=== PATIENT | female | born 1965 | race Hispanic/Latino ===

== ENCOUNTER → 2018-04-27 | Outpatient (CLI) | payer OTHER | END | disposition home or self-care (01) | LOC: RAH 11:12 | PROVIDERS: ATTEND Physical Medicine & Rehabilitation | DX: M19.071 Primary osteoarthritis, right ankle and foot (principal) | CPT/HCPCS: 73630 ==

== ENCOUNTER → 2019-01-02 | Outpatient (CLI) | payer OTHER | END | disposition home or self-care (01) | LOC: RAH 08:43 | PROVIDERS: ATTEND Internal Medicine Critical Care Medicine | DX: K76.9 Liver disease, unspecified (principal); I70.1 Atherosclerosis of renal artery; I10 Essential (primary) hypertension | CPT/HCPCS: 76705; 76770; 93975 ==

== ENCOUNTER 2020-05-22 12:46 | Emergency (ER) | payer BC, OTHER | END 2020-05-22 15:14 | disposition home or self-care (01) | LOC: EDH 12:46 | DX: S92.901A Unspecified fracture of right foot, initial encounter for closed fracture (principal); M79.671 Pain in right foot; V49.9XXA Car occupant (driver) (passenger) injured in unspecified traffic accident, initial encounter; Y93.89 Activity, other specified; Y92.89 Other specified places as the place of occurrence of the external cause; Y99.8 Other external cause status | CPT/HCPCS: 29515; 73600; 73630 ==

== ENCOUNTER → 2020-08-04 | Outpatient (CLI) | payer BC | END | disposition home or self-care (01) | LOC: RAH 14:35 | PROVIDERS: ATTEND Physician Assistant Medical | DX: Z12.31 Encounter for screening mammogram for malignant neoplasm of breast (principal) | CPT/HCPCS: 77067 ==